=== PATIENT | male | born 1975 | race African-American/Black ===

== ENCOUNTER 2022-04-30 22:14 | Emergency (ER) | payer OTHER ==
[2022-05-01 00:58] LABS: BASOPHIL 0.6 % (0-2); EOSINOPHIL 1.3 % (0-5); HCT 46.9 % (42.0-52.0); HGB 15.6 g/dl (13.2-18.0); LYMPHOCYTE 20.1 % (15-48); MCH 32.8 pg (25.0-31.0); MCHC 33.3 g/dL (32.0-36.0); MCV 98.5 fL (78.0-100.0); MONOCYTE 10.8 % (0-12); MPV 9.8 fL (6.0-9.5); NEUTROPHIL 66.7 % (41-80); NRBC 0; PLT 225 K/uL (150-400); RBC 4.76 M/uL (4.70-6.00); RDW 12.7 % (11.5-14.0); WBC 9.9 K/uL (4.0-10.5)
[2022-05-01 01:18] LABS: ALBUMIN 3.4 g/dL (3.4-5.0); BILIRUBIN - TOTAL 0.5 mg/dL (0.2-1.0); BUN/CREAT RATIO (CALC) 7.4 RATIO; CREATININE 1.22 mg/dL (0.67-1.17); GLOBULIN (CALCULATION) 4.3 g/dL; POTASSIUM 4.4 mmol/L (3.5-5.1); TOTAL PROTEIN 7.7 g/dL (6.4-8.2)
[2022-05-01 01:49] LABS: CORONAVIRUS 2019 SARS-COV-2 NEGATIVE (NEGATIVE); INFLUENZA A NAA NEGATIVE (NEGATIVE)
[2022-05-01] MEDS ORDERED: AZITHROMYCIN250 MG PO (04:11)
[2022-05-01] MEDS ORDERED: AMOX TR-K CLV1 EAC4 PO (04:11)
[2022-05-01] MEDS ORDERED: ELIQUIS5 MG PO (04:11)
[2022-05-01] MEDS ORDERED: PERCOCET 5-3251 EACH PO (04:11)
== END 2022-05-01 04:54 | disposition home or self-care (01) ==
LOC: FER 22:14
PROVIDERS: Internal Medicine
DX: J18.9 Pneumonia, unspecified organism (principal); M79.662 Pain in left lower leg; I10 Essential (primary) hypertension; F17.210 Nicotine dependence, cigarettes, uncomplicated; Z79.899 Other long term (current) drug therapy; Z20.822 Contact with and (suspected) exposure to COVID-19; Z28.310 Unvaccinated for COVID-19
CPT/HCPCS: 36415; 71275; 80053; 83690; 84145; 84484; 85025; 85379; 93005; J0696; J1100; J1170; J3010; U0002

== ENCOUNTER 2022-05-02 23:42 | Day surgery (SDCO) | payer OTHER ==
[~2022-05-02] VITALS: Ht 188 cm; Wt 171.5 kg
[~2022-05-02 23:42] MED LIST: AMOX TR-K CLV1 EAC4 PO; AZITHROMYCIN250 MG PO; ELIQUIS5 MG PO; PERCOCET 5-3251 EACH PO
[2022-05-03 04:11] LABS: BASOPHIL 0.3 % (0-2); EOSINOPHIL 0.6 % (0-5); HGB 14.1 g/dl (13.2-18.0); LYMPHOCYTE 16.8 % (15-48); MCH 32.3 pg (25.0-31.0); MCHC 32.8 g/dL (32.0-36.0); MCV 98.6 fL (78.0-100.0); MPV 9.7 fL (6.0-9.5); NEUTROPHIL 70.7 % (41-80); NRBC 0; PLT 232 K/uL (150-400); RBC 4.36 M/uL (4.70-6.00); RDW 12.9 % (11.5-14.0); WBC 9.6 K/uL (4.0-10.5)
[2022-05-03 04:12] LABS: BILIRUBIN - TOTAL 0.5 mg/dL (0.2-1.0); CREATININE 1.17 mg/dL (0.67-1.17); GLOBULIN (CALCULATION) 4.4 g/dL; POTASSIUM 4.1 mmol/L (3.5-5.1); TOTAL PROTEIN 7.4 g/dL (6.4-8.2)
--- NOTE | 2022-05-03 10:27 | NUR ---
46 YEAR OLD MALE REPORTS HE LIVES WITH SPOUSE; PT DECLINES ANY NEEDS AT D/C. SPOUSE SAID SHE WOULD COME AND SKILLED NURSING CASE MANAGER PATIENT ONCE HE IS D/C
[2022-05-03] MEDS ORDERED: LASIX40 MG PO (10:28)
[2022-05-03] MEDS ORDERED: COREG3.125 MG PO (10:29)
[2022-05-03] MEDS ORDERED: ELAVIL50 MG PO (10:29)
[2022-05-03] MEDS ORDERED: PRAVACHOL20 MG PO (10:29)
[2022-05-03] MEDS ORDERED: NEURONTIN100 MG PO (10:30)
[2022-05-03] MEDS ORDERED: RELAFEN750 MG PO (10:31)
[2022-05-03] MEDS ORDERED: COZAAR100 MG PO (10:31)
--- NOTE | 2022-05-03 12:54 | NUR ---
Eliquis will only be 50.00 copay after i called in prior auth. spoke to patient and damian they agreed to the copay and i also gave them a script card to help as well. called [facility] in [place] please have dr sullivan escribe the eliquis to [facility] in [place]
[2022-05-04 06:56] LABS: BASOPHIL 0.5 % (0-2); EOSINOPHIL 1.1 % (0-5); HCT 40.5 % (42.0-52.0); HGB 13.4 g/dl (13.2-18.0); LYMPHOCYTE 23.5 % (15-48); MCH 32.6 pg (25.0-31.0); MCHC 33.1 g/dL (32.0-36.0); MCV 98.5 fL (78.0-100.0); MONOCYTE 11.1 % (0-12); MPV 9.6 fL (6.0-9.5); NEUTROPHIL 63.3 % (41-80); NRBC 0; PLT 216 K/uL (150-400); RBC 4.11 M/uL (4.70-6.00); RDW 12.8 % (11.5-14.0); WBC 9.2 K/uL (4.0-10.5)
[2022-05-04 07:38] LABS: BUN/CREAT RATIO (CALC) 11.7 RATIO; CREATININE 1.2 mg/dL (0.67-1.17); POTASSIUM 4.1 mmol/L (3.5-5.1)
[2022-05-05 06:39] LABS: BASOPHIL 0.4 % (0-2); EOSINOPHIL 1.9 % (0-5); HCT 42.2 % (42.0-52.0); HGB 13.6 g/dl (13.2-18.0); LYMPHOCYTE 17.7 % (15-48); MCH 31.5 pg (25.0-31.0); MCHC 32.2 g/dL (32.0-36.0); MCV 97.7 fL (78.0-100.0); MPV 9.8 fL (6.0-9.5); NEUTROPHIL 68.3 % (41-80); NRBC 0; PLT 226 K/uL (150-400); RBC 4.32 M/uL (4.70-6.00); RDW 12.3 % (11.5-14.0); WBC 8.5 K/uL (4.0-10.5)
[2022-05-05 06:58] LABS: BUN/CREAT RATIO (CALC) 12.4 RATIO; CREATININE 1.05 mg/dL (0.67-1.17); MAGNESIUM 2.3 mg/dL (1.8-2.4); POTASSIUM 3.8 mmol/L (3.5-5.1)
--- NOTE | 2022-05-06 01:42 | NUR ---
PATIENT REFUSED WALK TEST ON DAY SHIFT AND ALSO REFUSED FOR THIS NURSE ON NIGHTSHIFT WELL. HE STATES HE IS TOO TIRED. I TRIED AT THE BEGINNING OF THE SHIFT AND AT 0000 WHEN HIS PAIN MEDS WERE DUE. IS AWARE. -YANIRA, RN
--- NOTE | 2022-05-06 13:34 | NUR ---
05/06/22 A referral was made to [facility] for 02 at 2 L per patient choice.
[2022-05-06] MEDS ORDERED: DUONEB 2.5-0.5M1 AMP NEB (13:38)
[2022-05-06] MEDS ORDERED: ZPAK PO (13:38)
[2022-05-06] MEDS ORDERED: NEBULIZER UNIT NEB (13:38)
[2022-05-06] MEDS ORDERED: MUCINEX 600MG600 MG PO (13:38)
[2022-05-06] MEDS ORDERED: CEFDINIR300 MG PO (13:38)
[2022-05-06] MEDS ORDERED: ASPIR-TRIN325 MG PO (14:52)
== END 2022-05-06 15:38 | disposition home or self-care (01) ==
LOC: FER 23:42 → FMS 05-03 07:46 → FER 05-03 07:46 → FMS 05-03 07:46
PROVIDERS: Internal Medicine; ADMIT Internal Medicine
DX: J18.9 Pneumonia, unspecified organism (principal); J96.01 Acute respiratory failure with hypoxia; R07.81 Pleurodynia; I10 Essential (primary) hypertension; G47.33 Obstructive sleep apnea (adult) (pediatric); E66.01 Morbid (severe) obesity due to excess calories; F17.210 Nicotine dependence, cigarettes, uncomplicated; Z68.42 Body mass index [BMI] 45.0-49.9, adult; Z99.89 Dependence on other enabling machines and devices; Z88.5 Allergy status to narcotic agent; Z79.899 Other long term (current) drug therapy
CPT/HCPCS: 36415; 36600; 71045; 71275; 78582; 80048; 80053; 82803; 83605; 83735; 83880; 84145; 84484; 85025; 85379; 93005; 94640; 94667; 94668; 94762; A9540; G0378; J1885; J2270; J2543; J3010; J7030; Q9967